=== PATIENT | female | born 1955 | race Caucasian/White ===

== ENCOUNTER 2022-06-05 00:59 | Emergency (ER) | payer MEDICARE, SELFPAY ==
[2022-06-05 01:01] VITALS: BP 106/74; PULSE 112; RESP 35; TEMP 36.6; O2SAT 97
--- NOTE | 2022-06-05 01:09 | ECG_ITS ---
Measurements Intervals [place] Rate: 140 P: 26 AL: 154 QRS: -17 QRSD: 81 T: 24 QT: 261 QTc: 399 Interpretive Statements SINUS TACHYCARDIA LOW QRS VOLTAGE- DIFFUSE LEADS POOR R WAVE PROGRESSION, CONSIDER ANTERIOR INFARCT INFERIOR INFARCT, AGE INDETERMINATE BASELINE WANDER- V2, V6 ABNORMAL ECG NO PREVIOUS ECG AVAILABLE FOR COMPARISON Electronically Signed On 06-05-2022 11:59:47 CAR DRIVER by Miguel Ángel Olguin D.O.
--- NOTE | 2022-06-05 01:57 | ED.GENADULT ---
HPI - General Adult General Chief complaint: Shortness of Breath/Dyspnea Stated complaint: dyspnea breast ca c mets Time Seen by Provider: 06/05/22 01:45 History of Present Illness HPI narrative: this is a 66-year-old female with metastatic breast cancer that has spread to her liver presenting ED with shortness of breath. Patient has been deteriorating rapidly over the last several weeks. EMS was called and she was found to be 93% on room air. She is placed on 2 L. She has had to have multiple thoracentesis to have her lungs drained at [facility] facilities. Patient also had increased swelling of her lower legs and jaundice. Patient has been taken off of chemo due to the spread cancer spreading. She is DNR/DNI. Goals of care today are comfort care and hospice. Related Data Allergies Allergy/AdvReac Type Severity Reaction Status Date / Time No Known Drug Allergies Allergy Other Verified 06/05/22 01:07 Review of Systems Review of Systems: CONSTITUTIONAL: Denies night sweats. EYES: No eye pain ENT: Denies rhinorrhea CARDIOVASCULAR: Denies palpitations RESPIRATORY: Admits dyspnea GASTROINTESTINAL: Denies hematemesis GENITOURINARY: Denies hematuria. SKIN: Denies rash MUSCULOSKELETAL: Denies myalgia. NEUROLOGIC: Denies weakness. PSYCHIATRIC: Denies delusions [facility] Past Medical History Medical History Jaundice Metastatic lung cancer (metastasis from lung to other site) Social History Social History (Updated 06/05/22 @ 03:19 by Rayo Medina MD) Social History: Negative for alcohol, drugs or tobacco Exam Narrative: APPEARANCE: patient appears ill Head: atraumatic. EYES: EOMI, NOSE: Atraumatic NECK: Trachea midline RESPIRATORY: tachypneic with decreased air entry CARDIOVASCULAR: tachycardic in the 150s with a weak pulse, significant pitting edema of the lower extremities ABDOMINAL: obese, no guarding or rebound MUSCULOSKELETAl: No obvious deformities NEURO: Alert. Moving 4/4 extremities SKIN:: severe jaundice, open wound on the right chin PSYCHIATRIC: Normal affect Course Vital Signs Vital signs: Vital Signs Temperature 97.9 F 06/05/22 01:01 Pulse Rate 112 H 06/05/22 01:01 Respiratory Rate 35 H 06/05/22 01:01 Blood Pressure 106/74 06/05/22 01:01 Pulse Oximetry 97 06/05/22 01:01 Oxygen Delivery Nasal Cannula 06/05/22 01:01 Oxygen Flow Rate 2 06/05/22 01:01 Temperature 97.9 F 06/05/22 01:01 Pulse Rate 112 H 06/05/22 01:01 Respiratory Rate 35 H 06/05/22 01:01 Blood Pressure 106/74 06/05/22 01:01 Pulse Oximetry 97 06/05/22 01:01 Oxygen Delivery Nasal Cannula 06/05/22 01:01 Oxygen Flow Rate 2 06/05/22 01:01 Medical Decision Making MDM Narrative Medical decision making narrative: this is a 66-year-old female with terminal metastatic cancer presenting to the ED for shortness of breath. Patient has had a progressive decline over the last several weeks. She is at end of life. I discussed goals of care with the patient she has requested comfort care only. She is joined by her sister and her mother. the patient had significant air hunger and was given morphine. Family requested Ativan as she appeared anxious. EKG interpretation: Rhythm [sinus], Rate 140, [place] -[normal], [place] -[normal], QRS [narrow], QTC [normal], T waves -[negative for concerning inversions], ST Segments - no elevations. Impression: sinus Tachycardia Patient was placed in 1 quiet room with her family. They stayed with her throughout the night. The family informed me that she had stopped breathing. Exam showed no heartbeat, no respiratory effort, no corneal reflex. At 6:29 a.m. the patient was pronounced . Vital Signs Vital Signs: Vital Signs Temperature 97.9 F 06/05/22 01:01 Pulse Rate 112 H 06/05/22 01:01 Respiratory Rate 35 H 06/05/22 01:01 Blood Pressure 106/74 06/05/22 01:01 Pulse Oximetry 97
[2022-06-05] MEDS: MORPHINE SULFATE (*CRX) 4 MG/ML INJ IV PUSH (02:10)
--- NOTE | 2022-06-05 02:23 | PC.NURSE ---
re-assessed BP prior to morphine administration. 55 systolic BP. notify MD SHAILESH to speak with patient and family. family at bedside. discussed for comfort care at this time. patient states that first dose of morphine has helped with anxiety. will notify staff if patient begins to feel anxious.
[2022-06-05] MEDS: LORazepam INJ (*CRX) 2 MG/ML VIAL 1 MG IV PUSH (02:50)
[2022-06-05 03:31] VITALS: PULSE 135
[2022-06-05 03:43] VITALS: BP 62/32; PULSE 134; RESP 29; O2SAT 99
[2022-06-05 03:47] VITALS: O2SAT 91
[2022-06-05 05:20] VITALS: PULSE 116; RESP 27; O2SAT 93
--- NOTE | 2022-06-05 06:28 | PC.NURSE ---
Called into room by family, stating pt hasn't taken a breath in a couple of minutes. This RN can not palpate a pulse. Dr. Medina called in at this time
--- NOTE | 2022-06-05 06:29 | PC.NURSE ---
Time of pronounced by Dr. Medina at [id number]
== END 2022-06-05 07:16 | disposition expired ==
PROVIDERS: Emergency Provider Emergency Medicine; PCP Internal Medicine
DX: C78.7 Secondary malignant neoplasm of liver and intrahepatic bile duct (principal); C50.919 Malignant neoplasm of unspecified site of unspecified female breast; Z51.5 Encounter for palliative care; R17 Unspecified jaundice; R00.0 Tachycardia, unspecified; R94.31 Abnormal electrocardiogram [ECG] [EKG]
CPT/HCPCS: 93005; 96374; 96375; 99284; J2060; J2270